=== PATIENT | male | born 1975 | race Caucasian/White ===

== ENCOUNTER → 2020-11-22 | Outpatient (CLI) | payer OTHER ==
--- NOTE | 2020-11-22 11:21 | RAD ---
AP and Lateral Views of the Chest 11/22/2020 10:22 AM Indication: Reason: CONGESTIVE HEART FAILURE Comparison: None Findings: There is a multilead pacemaking/ICD device from left subclavian approach. Heart size is top normal. No pneumothorax, or pleural effusion is seen. No significant central vascular congestion or cephalization is identified. No acute osseous changes are seen. IMPRESSION: No evidence of acute cardiopulmonary process Electronically signed by: Juan Miguel Pierce MD (11/22/2020 11:19 AM) [id number]
== END ==
LOC: RAD 10:03
PROVIDERS: ATTEND Family Medicine
DX: Z02.71 Encounter for disability determination (principal); I50.22 Chronic systolic (congestive) heart failure
CPT/HCPCS: 71046